=== PATIENT | female | born 1990 | race African-American/Black ===

== ENCOUNTER 2018-07-13 14:01 | Emergency (ER) | payer MEDICAID ==
[~2018-07-13] VITALS: Ht 175.3 cm; Wt 98.0 kg
[2018-07-13 14:36] VITALS: BP 166/65
== END 2018-07-13 16:51 | disposition home or self-care (01) ==
LOC: ER 14:01
DX: J02.0 Streptococcal pharyngitis (principal); M79.10 Myalgia, unspecified site
CPT/HCPCS: 99283

== ENCOUNTER 2019-10-05 07:28 | Emergency (ER) | payer BC, MEDICAID ==
[~2019-10-05] VITALS: Ht 175.3 cm; Wt 98.0 kg
[2019-10-05] MEDS ORDERED: KETOROLAC 30MG/ML VIAL IV ONE (09:30)
[2019-10-05 09:42] LABS: BASOPHILS % 1.1 % (0.0-2.0); EOSINOPHILS % 0.4 % (0.0-5.0); HEMATOCRIT. 39.6 % (36.0-48.0); HEMOGLOBIN. 13.2 g/dL (12.0-16.0); LYMPHOCYTES % 47.4 % (20.0-50.0); MEAN CORPUSCULAR HEMOGLOBIN 28.6 pg (28.0-32.0); MEAN CORPUSCULAR VOLUME 86.1 fL (81.0-99.0); MEAN PLATELET VOLUME 8.3 fl (7.4-10.4); MONOCYTES % 5.8 % (2.0-8.0); NEUTROPHILS % 45.3 % (40.0-76.0); PLATELET 311 x1000/uL (130-400); RED CELL DISTRIBUTION WIDTH 14.1 % (11.6-14.6)
[2019-10-05 09:45] LABS: CHLORIDE 108 mEq/L (98-107)
[2019-10-05 09:47] LABS: HCG SCREEN NEGATIVE
[2019-10-05] MEDS ORDERED: MORPHINE SULFATE 4 MG/ML CPJ (NOT FOR IM USE) IV ONE (10:15)
[2019-10-05 11:42] LABS: KETONES URINE NEGATIVE (NEGATIVE); LEUKOCYTE ESTERASE URINE NEGATIVE (NEGATIVE); NITRITE URINE NEGATIVE (NEGATIVE); OCCULT BLOOD URINE NEGATIVE (NEGATIVE); PH URINE 5.5 (4.5-8.0); PROTEIN URINE NEGATIVE (NEGATIVE); SPECIFIC GRAVITY URINE 1.019 (1.005-1.030); UROBILINOGEN URINE 0.2 E.U./dL (0.2-1.0)
[2019-10-05 11:44] LABS: CLARITY URINE CLEAR (CLEAR); COLOR URINE YELLOW (YELLOW)
[2019-10-05 11:59] VITALS: BP 123/82
== END 2019-10-05 12:20 | disposition home or self-care (01) ==
LOC: ER 07:53
DX: R10.30 Lower abdominal pain, unspecified (principal)
CPT/HCPCS: 36415; 76830; 76856; 80053; 81003; 81025; 84703; 85025; 86850; 86900; 86901; 93005; 96374; 96375; 99285; J1885; J2270